=== PATIENT | male | born 1960 | race Caucasian/White ===

== ENCOUNTER 2017-08-15 16:33 | Outpatient (CLI) | payer BC | END 2017-08-15 16:34 | disposition home or self-care (01) | LOC: DI 16:33 | PROVIDERS: ATTEND Family Medicine | DX: Z53.9 Procedure and treatment not carried out, unspecified reason (principal) ==

== ENCOUNTER 2018-07-31 16:28 | Outpatient (CLI) | payer BC | END 2018-07-31 16:29 | disposition home or self-care (01) | LOC: RT 16:28 | PROVIDERS: ATTEND Internal Medicine Gastroenterology | DX: I10 Essential (primary) hypertension (principal) | CPT/HCPCS: 93005 ==

== ENCOUNTER 2018-08-07 13:12 | Day surgery (SDC) | payer BC ==
[2018-08-07] MEDS ORDERED: LACTATED RINGERS 1,000 ML IV ONE (13:31)
--- NOTE | 2018-08-07 13:48 | ANESTHESIA ---
Pre-Anesthesia VS, & Labs - Diagnosis family history of colon cancer - Procedure colonoscopy Vital Signs: Temp Pulse Resp BP Pulse Ox 36.2 C L 54 L 16 143/81 H 98 08/07/18 13:38 08/07/18 13:38 08/07/18 13:38 08/07/18 13:38 08/07/18 13:38 Height 6 ft 2 in Weight (kg) 122.8 kg - NPO >8 hours (8am) Home Medications and Allergies Home Medications: Ambulatory Orders Multivitamin [Multivitamins] 1 each PO DAILY 08/06/18 Tamsulosin HCl [Flomax] 0.4 mg PO DAILY 08/06/18 Cholecalciferol (Vitamin D3) [Vitamin D] 1 unit PO DAILY 02/05/13 Multivitamin [Multivitamins] 1 each PO DAILY 08/06/18 Tamsulosin HCl [Flomax] 0.4 mg PO DAILY 08/06/18 Allergies/Adverse Reactions: Allergies Allergy/AdvReac Type Severity Reaction Status Date / Time acetaminophen [From Percocet] Allergy Severe Respiratory Verified 02/05/13 11:33 aspirin Allergy Severe Respiratory Verified 02/05/13 11:33 ibuprofen Allergy Severe Respiratory Verified 02/05/13 11:31 naproxen Allergy Severe Respiratory Verified 02/05/13 14:02 NSAIDS (Non-Steroidal Allergy Severe Respiratory Verified 02/05/13 11:34 Anti-Inflamma oxycodone [Oxycodone] Allergy Severe Respiratory Verified 02/05/13 11:32 Anes History & Medical History - Anesthetic History Anesthesia Complications: reports: No previous complications - Medical History Cardiovascular: reports: None Pulmonary: reports: Sleep apnea Gastrointestinal: reports: None Urinary: reports: None Musculoskeletal: reports: None Endocrine/Autoimmune: reports: None Skin: reports: None - Surgical History Eyes Ears Nose Throat (EENT): Tonsil/Adenoidectomy Exam General: Alert Dental: WNL Mouth Opening: Greater than 4 Fingerbreadths Neck Mobility: Normal Mallampati classification: II Thyromental Distance: greater than 6 cm Respiratory: Lungs clear Cardiovascular: Regular rate, Normal S1, Normal S2 Mental/Cognitive Status: Alert/Oriented X3 Plan Anesthesia Type: MAC Consent for Procedure(s) Verified and Reviewed: Yes Code Status: Attempt Resuscitation ASA classification: 2-Mild systemic disease Is this case an emergency?: No
[2018-08-07 15:58] VITALS: BP 117/59
== END 2018-08-07 13:13 | disposition home or self-care (01) ==
LOC: SDS 13:12
PROVIDERS: ATTEND Internal Medicine Gastroenterology
PROC: 0DJD8ZZ Inspection of Lower Intestinal Tract, Via Natural or Artificial Opening Endoscopic (ICD-10-PCS; principal; 2018-08-07 14:15)
DX: Z12.11 Encounter for screening for malignant neoplasm of colon (principal); Z87.891 Personal history of nicotine dependence; I10 Essential (primary) hypertension; G47.30 Sleep apnea, unspecified; R73.03 Prediabetes; E66.9 Obesity, unspecified; Z68.36 Body mass index [BMI] 36.0-36.9, adult; R74.8 Abnormal levels of other serum enzymes; N40.0 Benign prostatic hyperplasia without lower urinary tract symptoms
CPT/HCPCS: 45378; J7120

== ENCOUNTER 2019-02-17 22:01 | Emergency (ER) | payer BC ==
[2019-02-17 22:08] VITALS: BP 154/68
[2019-02-17] MEDS ORDERED: PROPARACAINE 0.5% OPHTH DROPS 15 ML LEFTEYE STA (22:10)
--- NOTE | 2019-02-17 22:20 | ED Physician Documentation ---
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 Flushed at home. Vision blurry but 20/20 here.) Review of Systems Constitutional: reports: Reviewed and negative Eyes: reports: Discharge, Irritation. denies: Photophobia Ears: denies: Loss of hearing, Ear pain Nose: reports: Reviewed and negative PD PAST MEDICAL HISTORY - Past Medical History Cardiovascular: None Respiratory: Sleep apnea Endocrine/Autoimmune: None GI: None : None Psych: Claustrophobia Musculoskeletal: None Derm: None - Past Surgical History HEENT: Tonsil/Adenoidectomy - Present Medications Home Medications: Ambulatory Orders Medication Instructions Recorded Confirmed Cholecalciferol (Vitamin D3) 1 unit PO DAILY 02/05/13 08/07/18 [Vitamin D] Multivitamin [Multivitamins] 1 each PO DAILY 08/06/18 08/06/18 Tamsulosin HCl [Flomax] 0.4 mg PO DAILY 08/06/18 08/06/18 - Allergies Allergies/Adverse Reactions: Allergies Allergy/AdvReac Type Severity Reaction Status Date / Time acetaminophen [From Percocet] Allergy Severe Respiratory Verified 02/17/19 22:09 aspirin Allergy Severe Respiratory Verified 02/17/19 22:09 ibuprofen Allergy Severe Respiratory Verified 02/17/19 22:09 naproxen Allergy Severe Respiratory Verified 02/17/19 22:09 NSAIDS (Non-Steroidal Allergy Severe Respiratory Verified 02/17/19 22:09 Anti-Inflamma oxycodone [Oxycodone] Allergy Severe Respiratory Verified 02/17/19 22:09 PD ED PE NORMAL - Vitals Vital signs reviewed: Yes - General General: Alert and oriented X 3, No acute distress - HEENT HEENT: PERRL, EOMI, Other (Conjunctival injection on the left, pain-free after proparacaine. No fluorescein uptake.) - Neck Neck: Supple, no meningeal sign, No bony TTP Results - Vitals Vitals: Vital Signs - 24 hr 02/17/19 22:05 Temperature 36.4 C L Heart Rate 70 Respiratory 14 Rate Blood Pressure 154/68 H O2 Saturation 97 Oxygen O2 Source Room air PD MEDICAL DECISION MAKING - ED course ED course: He was flushed with saline thoroughly after proparacaine. MSDS was reviewed, it is a slightly acidic and irritating mixture but should not give him any permanent issues. Departure - Departure Disposition: 01 Home, Self Care Clinical Impression: Chemical exposure of eye Condition: Good Record reviewed to determine appropriate education?: Yes Instructions: ED Chemical Conjunctivitis Follow-Up: Olman Coelho MD [Provider Admit Priv/Credential] - (2 DAYS IF NOT BETTER)
== END 2019-02-17 22:24 | disposition home or self-care (01) ==
LOC: ED 22:01
DX: H57.89 Other specified disorders of eye and adnexa (principal); Z77.098 Contact with and (suspected) exposure to other hazardous, chiefly nonmedicinal, chemicals
CPT/HCPCS: 99282; 99283; J3490

== ENCOUNTER 2023-09-23 08:45 | Emergency (ER) | payer BC ==
[2023-09-23 09:24] LABS: BASOPHILS % (AUTO) 0.2 %; HCT - HEMATOCRIT 45.2 % (42.0-52.0); HGB - HEMOGLOBIN 15.6 g/dL (14.0-18.0); LYMPHOCYTES # (AUTO) 0.5 10^3/uL (1.5-3.5); LYMPHOCYTES % (AUTO) 3.5 %; MEAN CORPUSCULAR HEMOGLOBIN 29.3 pg (27.0-31.0); MEAN CORPUSCULAR HGB CONC 34.5 g/dL (32.0-36.0); MEAN CORPUSCULAR VOLUME 84.8 fL (80.0-94.0); MEAN PLATELET VOLUME 10.5 fL (7.4-11.4); MONOCYTES % (AUTO) 7.6 %; NEUTROPHILS # (AUTO) 11.6 10^3/uL (1.5-6.6); NEUTROPHILS % (AUTO) 88.3 %; PLT - PLATELET COUNT 213 10^3/uL (130-450); RED BLOOD COUNT 5.33 10^6/uL (4.70-6.10); RED CELL DISTRIBUTION WIDTH 12.8 % (12.0-15.0); WHITE BLOOD COUNT 13.1 x10^3/uL (4.8-10.8)
--- NOTE | 2023-09-23 09:24 | ED Physician Documentation ---
History of Present Illness - Stated complaint Stated Complaint: N/V/DIZZY HEAD PX - Chief complaint Chief Complaint: Abd Pain - Additonal information Additional information: Patient 63-year-old male presenting to the emergency department with lightheadedness, headache, nausea, vomiting. Symptoms ongoing x 3-4 days. Initially he reported been feeling fatigued and lightheaded. Subsequently developed nausea vomiting and central headache. Headache was not maximal at time of onset. No associated fever or neck stiffness. Reports multiple episodes nausea vomiting. Denies abdominal pain, diarrhea or constipation. No known sick contacts. Denies chest pain, shortness of breath, new rash, new weakness/numbness/tingling in any extremity. Review of Systems Constitutional: reports: Myalgias. denies: Fever Eyes: denies: Loss of vision Ears: denies: Loss of hearing Nose: reports: Congestion Throat: denies: Dental pain / toothache GI: reports: Nausea, Vomiting : denies: Dysuria Musculoskeletal: denies: Neck pain Neurologic: reports: Headache Psychiatric: denies: Depressed PD PAST MEDICAL HISTORY - Past Medical History Cardiovascular: None Respiratory: Sleep apnea Endocrine/Autoimmune: Type 2 diabetes GI: None : None Psych: Claustrophobia Musculoskeletal: None Derm: None - Past Surgical History Past Surgical History: Yes HEENT: Tonsil/Adenoidectomy - Present Medications Home Medications: Ambulatory Orders Medication Instructions Recorded Confirmed Multivitamin [Multivitamins] 1 each PO DAILY 08/06/18 09/23/23 Tamsulosin HCl [Flomax] 0.4 mg PO BID 08/06/18 09/23/23 Amlodipine Besylate [Norvasc] 10 mg PO DAILY 09/23/23 09/23/23 Celecoxib [Celebrex] 200 mg PO DAILY PRN 09/23/23 09/23/23 Cholecalciferol [Vitamin D3] 5,000 unit PO DAILY 09/23/23 09/23/23 Dulaglutide [Trulicity] SUBQ OAW 09/23/23 Escitalopram [Lexapro] 10 mg PO DAILY 09/23/23 09/23/23 Finasteride [Proscar] 5 mg PO DAILY 09/23/23 09/23/23 Losartan Potassium 100 mg PO DAILY 09/23/23 09/23/23 Magnesium Oxide [Magnesium] 400 mg PO DAILY 09/23/23 09/23/23 Ondansetron Odt [Zofran] 4 mg TL Q6H PRN #10 tablet 09/23/23 - Allergies Allergies/Adverse Reactions: Allergies Allergy/AdvReac Type Severity Reaction Status Date / Time acetaminophen [From Percocet] Allergy Severe Respiratory Verified 02/17/19 22:09 aspirin Allergy Severe Respiratory Verified 02/17/19 22:09 ibuprofen Allergy Severe Respiratory Verified 02/17/19 22:09 naproxen Allergy Severe Respiratory Verified 02/17/19 22:09 NSAIDS (Non-Steroidal Allergy Severe Respiratory Verified 02/17/19 22:09 Anti-Inflamma oxycodone [Oxycodone] Allergy Severe Respiratory Verified 02/17/19 22:09 - Social History Does the pt smoke?: No Smoking Status: Never smoker Does the pt drink ETOH?: Yes Does the pt have substance abuse?: No PD ED PE NORMAL - Vitals Vital signs reviewed: Yes (wnl) - General General: Alert and oriented X 3 - HEENT HEENT: Atraumatic, PERRL - Neck Neck: Supple, no meningeal sign - Cardiac Cardiac: RRR - Respiratory Respiratory: No respiratory distress - Abdomen Abdomen: Normal bowel sounds, Non tender - Neuro Neuro: Alert and oriented X 3, 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 Relevant findings are: Sinus rhythm with rate 93 bpm. Normal axis. Normal CO, QRS, QTc intervals. No ST segment elevations. Notable trigeminy. - Labs Labs: Laboratory Tests 09/23/23 09/23/23 09/23/23 09:17 09:17 09:43 WBC 13.1 H RBC 5.33 Hgb 15.6 Hct 45.2 MCV 84.8 MCH 29.3 MCHC 34.5 RDW 12.8 Plt Count 213 MPV 10.5 Neut # (Auto) 11.6 H Lymph # (Auto) 0.5 L [place] # (Auto) 1.0 Eos # (Auto) 0.0 Baso # (Auto) 0.0 Absolute Nucleated RBC 0.00 Nucleated RBC % 0.0 Sodium 131 L Potassium 3.5 Chloride 95 L Carbon Dioxide 24 Anion Gap 12.0 BUN 16 Creatinine 0.9 Estimated GFR (MDRD) 85 L Glucose 194 H Calcium 9.1 Total Bilirubin 1.2 H AST 14 ALT 19 Alkaline Phosphatase 61 Total Protein 7.4 Albumin 4.2 Globulin 3.2 Albumin/Globulin Ratio 1.3 Lipase < 10 L Urine Color Urine Clarity Urine pH Ur Specific [place] Urine Protein Urine Glucose (UA) Urine Ketones Urine Occult Blood Urine Nitrite Urine Bilirubin Urine Urobilinogen Ur Leukocyte Esterase Urine RBC Urine WBC Ur Squamous Epith Cells Urine Bacteria Ur Microscopic Review Urine Culture Comments Nasal Adenovirus (PCR) NOT DETECTED Nasal B. parapertussis DNA (PCR) NOT DETECTED Nasal Coronavir 229E PCR NOT DETECTED Nasal Coronavir HKU1 PCR NOT DETECTED Nasal Coronavir NL63 PCR NOT DETECTED Nasal Coronavir OC43 PCR NOT DETECTED Nasal Enterovir/Rhinovir PCR NOT DETECTED Nasal Influenza B PCR NOT DETECTED Nasal Influenza A PCR NOT DETECTED Nasal Parainfluen 1 PCR NOT DETECTED Nasal Parainfluen 2 PCR NOT DETECTED Nasal Parainfluen 3 PCR NOT DETECTED Nasal Parainfluen 4 PCR NOT DETECTED Nasal RSV (PCR) NOT DETECTED Nasal B.pertussis DNA PCR NOT DETECTED Nasal C.pneumoniae (PCR) NOT DETECTED Ivan Human Metapneumo PCR NOT DETECTED Nasal M.pneumoniae (PCR) NOT DETECTED Nasal SARS-CoV-2 (PCR) NOT DETECTED 09/23/23 10:23 WBC RBC Hgb Hct MCV MCH MCHC RDW Plt Count MPV Neut # (Auto) Lymph # (Auto) [place] # (Auto) Eos # (Auto) Baso # (Auto) Absolute Nucleated RBC Nucleated RBC % Sodium Potassium Chloride Carbon Dioxide Anion Gap BUN Creatinine Estimated GFR (MDRD) Glucose Calcium Total Bilirubin AST ALT Alkaline Phosphatase Total Protein Albumin Globulin Albumin/Globulin Ratio Lipase Urine Color YELLOW Urine Clarity CLEAR Urine pH 6.0 Ur Specific [place] 1.020 Urine Protein 30 H Urine Glucose (UA) NEGATIVE Urine Ketones TRACE Urine Occult Blood SMALL H Urine Nitrite NEGATIVE Urine Bilirubin NEGATIVE Urine Urobilinogen 0.2 (NORMAL) Ur Leukocyte Esterase NEGATIVE Urine RBC 0-5 Urine WBC 0-3 Ur Squamous Epith Cells RARE Squamous Urine Bacteria None Seen Ur Microscopic Review INDICATED Urine Culture Comments NOT INDICATED Nasal Adenovirus (PCR) Nasal B. parapertussis DNA (PCR) Nasal Coronavir 229E PCR Nasal Coronavir HKU1 PCR Nasal Coronavir NL63 PCR Nasal Coronavir OC43 PCR Nasal Enterovir/Rhinovir PCR Nasal Influenza B PCR Nasal Influenza A PCR Nasal Parainfluen 1 PCR Nasal Parainfluen 2 PCR Nasal Parainfluen 3 PCR Nasal Parainfluen 4 PCR Nasal RSV (PCR) Nasal B.pertussis DNA PCR Nasal C.pneumoniae (PCR) Ivan Human Metapneumo PCR Nasal M.pneumoniae (PCR) Nasal SARS-CoV-2 (PCR) PD Medical Decision Making - ED course Complexity details: reviewed old records, reviewed results, considered differential ED course: Patient 63-year-old male presenting to the emergency department with 2-3-day history of headache, lightheadedness, nausea, vomiting. Afebrile, hemodynamic stable arrival to the emergency department. No focal or lateralizing neurologic deficits. No nuchal rigidity appreciated. Patient otherwise had a benign abdominal exam and clear aeration in all lung lindsay. Labs obtained demonstrated a minimal hyponatremia with sodium 131. No significant leukocytosis, bandemia, other electrolyte abnormality, indications renal or hepatic dysfunction. Respiratory viral panel negative. Patient given dose Compazine, Benadryl here in the emergency department and IV hydration with significant improvement in his symptoms. After approximately 3 hours in the department he and his left abruptly s tating that they felt better and wanted to go home. I was able to provide him with a prescription for Zofran for any ongoing nausea however I was not able to discuss the results with them prior to their departure. Departure - Departure Disposition: 01 Home, Self Care Clinical Impression: Headache Qualifiers: Headache type: unspecified Headache chronicity pattern: acute headache Intractability: not intractable Qualified Code(s): R51.9 - Headache, unspecified Vomiting Qualifiers: Vomiting type: unspecified Nausea presence: with nausea Qualified Code(s): R11.2 - Nausea with vomiting, unspecified Prescriptions: Ondansetron Odt [Zofran] 4 mg TL Q6H PRN #10 tablet PRN Reason: Nausea / Vomiting Forms: PCP List Discharge Date/Time: 09/23/23 13:09
[2023-09-23] MEDS ORDERED: diphenhydrAMINE INJ 50 MG/ML VIAL IVP STA (09:26)
[2023-09-23] MEDS ORDERED: PROCHLORPERAZINE 10 MG/2 ML VIAL IVP STA (09:26)
[2023-09-23] MEDS ORDERED: SODIUM CHLORIDE 0.9% 1,000 ML IV STA (09:26)
[2023-09-23 09:37] LABS: ALBUMIN 4.2 g/dL (3.2-5.5); ALBUMIN/GLOBULIN RATIO 1.3 (1.0-2.2); ALKALINE PHOSPHATASE 61 IU/L (42-121); ALT ALANINE AMINOTRANSFERASE 19 IU/L (10-60); AST ASPARTATE AMINOTRANSFERASE 14 IU/L (10-42); BILIRUBIN,TOTAL 1.2 mg/dL (0.2-1.0); BUN - BLOOD UREA NITROGEN 16 mg/dL (6-20); CALCIUM 9.1 mg/dL (8.5-10.3); CARBON DIOXIDE - CO2 24 mmol/L (21-32); CHLORIDE 95 mmol/L (101-111); CREATININE 0.9 mg/dL (0.6-1.3); GFR - MDRD 85 (>89); GLUCOSE 194 mg/dL (74-104); POTASSIUM 3.5 mmol/L (3.5-4.5); SODIUM 131 mmol/L (135-145); TOTAL PROTEIN 7.4 g/dL (6.4-8.9)
[2023-09-23 09:44] LABS: LIPASE < 10 U/L (11-82)
[2023-09-23 10:59] LABS: BILIRUBIN,URINE NEGATIVE (NEGATIVE); GLUCOSE, URINE (UA) NEGATIVE (NEGATIVE); KETONES,URINE (UA) TRACE mg/dL (NEGATIVE); LEUKOCYTE ESTERASE, URINE NEGATIVE (NEGATIVE); NITRITE,URINE NEGATIVE (NEGATIVE); OCCULT BLOOD,URINE SMALL (NEGATIVE); PROTEIN,URINE 30 mg/dL (NEGATIVE); UROBILINOGEN,URINE 0.2 (NORMAL) E.U./dL (NORMAL)
[2023-09-23 11:08] LABS: CLARITY,URINE CLEAR (CLEAR)
[2023-09-23 11:08] LABS: B. PARAPERTUSSIS- RESP PCR PAN NOT DETECTED; B. PERTUSSIS- RESP PCR PANEL NOT DETECTED; C. PNEUMONIAE- RESP PCR PANEL NOT DETECTED; CORONAVIRUS 229E-RESP PCR NOT DETECTED; CORONAVIRUS HKU1-RESP PCR NOT DETECTED; CORONAVIRUS NL63-RESP PCR NOT DETECTED; CORONAVIRUS OC43-RESP PCR NOT DETECTED; HUMAN METAPNEUMOVIRUS NOT DETECTED; INFLUENZA A- RESP PCR PANEL NOT DETECTED; INFLUENZA B - RESP PCR PANEL NOT DETECTED; M. PNEUMONIAE- RESP PCR PANEL NOT DETECTED; PARAINFLUENZA VIRUS 1 NOT DETECTED; PARAINFLUENZA VIRUS 2 NOT DETECTED; PARAINFLUENZA VIRUS 3 NOT DETECTED; PARAINFLUENZA VIRUS 4 NOT DETECTED; RHINOVIRUS/ENTEROVIRUS NOT DETECTED; RSV- RESP PCR PANEL NOT DETECTED; SARS-CoV-2 -RESP PCR PANEL NOT DETECTED
[2023-09-23 11:14] LABS: BACTERIA,URINE None Seen /HPF (None Seen); RBC,URINE 0-5 /HPF (0-5); SQUAMOUS EPITHELIAL CELL,UR RARE Squamous (<= Few); WBC,URINE 0-3 /HPF (0-3)
[2023-09-23 13:16] VITALS: BP 117/63; O2SAT 96
== END 2023-09-23 13:09 | disposition home or self-care (01) ==
LOC: ED 08:45
DX: R51.9 Headache, unspecified (principal); R11.2 Nausea with vomiting, unspecified
CPT/HCPCS: 36415; 80053; 81001; 83690; 85025; 87633; 93005; 96374; 99283; J1200; 81003; 87086